=== PATIENT | female | born 1945 | race Caucasian/White ===

== ENCOUNTER 2020-06-24 20:15 | Emergency (ER) | payer OTHER ==
--- NOTE | 2020-06-24 21:26 | RAD REPORT ---
EXAM DESCRIPTION: CT - Head Brain Wo Cont - 06/24/2020 9:10 pm CLINICAL HISTORY: DIZZINESShypertension COMPARISON: HEAD BRAIN W O CONTRAST dated 08/27/2013 TECHNIQUE: Axial 5 mm thick images of the head were obtained without IV contrast. All CT scans are performed using dose optimization technique as appropriate and may include automated exposure control or mA/KV adjustment according to patient size. FINDINGS: No intracranial hemorrhage, mass, edema or shift of mid-line structures. No acute infarcti on changes seen. No abnormal extra-axial fluid collections. No cortical edema or sulcal effacement. A trophy and chronic ischemic changes are present, relatively mild, and similar to 2014 study. Mastoid air cells are clear. No acute paranasal sinus finding. No acute bony findings. IMPRESSION: Negative non-contrast CT head examination for acute finding. Atrophy and chronic ischemic changes match comparison.
[2020-06-24 21:31] LABS: Absolute Lymphocytes (CBC) 1.6 K/uL (0.7-4.9); Basophils % 0.7 % (0-1.3); Lymphocytes % 12.8 % (15.3-44.8); MPV 9.9 fL (7.6-11.3); RBC Red Blood Cell Count 4.51 M/uL (3.86-4.86)
[2020-06-24 21:35] LABS: Protime INR 0.97
[2020-06-24 21:52] LABS: ALT/SGPT 18 U/L (12-78); AST/SGOT 11 U/L (15-37); Albumin 3.3 g/dL (3.4-5.0); Alkaline Phosphatase 94 U/L (45-117); BUN Blood Urea Nitrogen 19 mg/dL (7-18); Bicarbonate 27 mmol/L (21-32); Bilirubin Direct 0.2 mg/dL (0-0.2); Bilirubin Total 0.2 mg/dL (0.2-1.0); Glucose Level 128 mg/dL (74-106); Lipase 165 U/L (73-393); Magnesium 1.9 mg/dL (1.8-2.4); NT PRO-BNP 113 pg/mL (<125); Protein, Total 7.3 g/dL (6.4-8.2); Sodium Level 144 mmol/L (136-145); Troponin (Emerg Dept Use Only) < 0.02 ng/mL (0.0-0.045)
[2020-06-25] MEDS ORDERED: METRONIDAZOLE 500mg IVPB 500 MG/100 ML BAG IV ONE (00:07)
[2020-06-25] MEDS ORDERED: CIPROFLOXACIN HCL 500 MG TAB ONE (00:07)
--- NOTE | 2020-06-25 00:10 | EDPHYS ---
Physician Documentation [facility] Name: Shantal Dubois Age: 74 yrs Sex: Female : 1945 Arrival Date: 06/24/2020 Time: 20:18 Bed 14 Private MD: ED Physician Apolinar Brian HPI: 06/24 21:06 This 74 yrs old Female presents to ER via Wheelchair with complaints of High pm1 Blood Pressure, Dizziness. 21:06 The patient has elevated blood pressure and discovered this at home, with a home pm1 device. Onset: The symptoms/episode began/occurred today. Modifying factors: The symptoms are aggravated by nothing, The symptoms are alleviated by nothing. Associated signs and symptoms: Pertinent positives: dizziness, Pertinent negatives: chest pain, weakness, shortness of breath. Severity of symptoms: in the emergency department the blood pressure is unchanged. The patient has not experienced similar symptoms in the past. Patient has also noticed RLQ abdominal pain for the past 2 days that was worse yesterday. Historical: - Allergies: 20:25 No Known Allergies; jd3 - Home Meds: 20:25 Lisinopril Oral [Active]; Aspirin Oral [Active]; cholesterol med [Active]; jd3 - PMHx: 20:25 Hypertension; High Cholesterol; jd3 - PSHx: 20:25 None; jd3 - Immunization history:: Adult Immunizations up to date. - Social history:: Smoking status: Patient denies any tobacco usage or history of. ROS: 21:06 Constitutional: Negative for fever, chills, and weight loss, Eyes: Negative for injury, pm1 pain, redness, and discharge, ENT: Negative for injury, pain, and discharge, Neck: Negative for injury, pain, and swelling, Cardiovascular: Negative for chest pain, palpitations, and edema, Respiratory: Negative for shortness of breath, cough, wheezing, and pleuritic chest pain. 21:06 Back: Negative for injury and pain, : Negative for injury, bleeding, discharge, and swelling, MS/Extremity: Negative for injury and deformity, Skin: Negative for injury, rash, and discoloration. 21:06 Abdomen/GI: Positive for abdominal pain, of the right lower quadrant, Negative for nausea, vomiting, and diarrhea. 21:06 Neuro: Positive for dizziness, Negative for numbness, tingling, weakness. Exam: 21:06 Constitutional: This is a well developed, well nourished patient who is awake, alert, pm1 and in no acute distress. Head/Face: Normocephalic, atraumatic. Chest/axilla: Normal chest wall appearance and motion. Nontender with no deformity. No lesions are appreciated. Cardiovascular: Regular rate and rhythm with a normal S1 and S2. No gallops, murmurs, or rubs. Normal PMI, no JVD. No pulse deficits. Respiratory: Lungs have equal breath sounds bilaterally, clear to auscultation and percussion. No rales, rhonchi or wheezes noted. No increased work of breathing, no retractions or nasal flaring. 21:06 Back: No spinal tenderness. No costovertebral tenderness. Full range of motion. Skin: Warm, dry with normal turgor. Normal color with no rashes, no lesions, and no evidence of cellulitis. MS/ Extremity: Pulses equal, no cyanosis. Neurovascular intact. Full, normal range of motion. 21:06 Abdomen/GI: Inspection: abdomen appears normal, Palpation: soft, in all quadrants, mild abdominal tenderness, in the right lower quadrant, rebound tenderness, is not appreciated. 21:06 Neuro: Exam negative for acute changes, Orientation: is normal, Mentation: is normal, Motor: is normal, Sensation: is normal, no obvious gross deficits. Vital Signs: 20:23 BP 147 / 60; Pulse 89; Resp 17 S; Temp 97.9(TE); Pulse Ox 100% on R/A; Weight 79.83 kg j (R); Height 5 ft. 2 in. (157.48 cm) (R); Pain /10; 21:29 BP 130 / 66; Pulse 106; Resp 17 S; Pulse Ox 100% on R/A; ca1 22:38 BP 127 / 63; Pulse 87; Resp 18; Pulse Ox 97% ; mg2 06/25 00:08 BP 132 / 71; Pulse 85; Resp 18; Pulse Ox 100% on R/A; mg2 06/24 20:23 Body Mass Index 32.19 (79.83 kg, 157.48 cm) jd3 MDM: 06/24 20:36 Patient medically screened. pm1 23:46 Data reviewed: vital signs. Data interpreted: Pulse oximetry: on room air is 97 %. pm1 Interpretation: normal. Counseling: I had a detailed discussion with the patient and/or guardian regarding: the historical points, exam findings, and any diagnostic results supporting the discharge/admit diagnosis, lab results, radiology results, the need for further work-up and treatment in the hospital. 23:46 Refusal of service: The patient/guardian displays adequate decision making capability pm1 and despite a detailed discussion of alternatives, benefits, risks, and consequences refuses: Admission to the hospital for further work-up and treatment. 06/25 00:26 ED course: Discussed with patient and son at length on multiple occasions the need for pm1 admission. Patient does not want to stay in the hospital due to her concern and fear about covid-19. Explained to patient that she can return at any time for admission to the hospital. 06/24 20:50 Order name: Basic Metabolic Panel; Complete Time: 21:56 pm1 06/24 20:50 Order name: CBC with Diff; Complete Time: 21:56 pm1 06/24 20:50 Order name: LFT's; Complete Time: 21:56 pm1 06/24 20:50 Order name: Magnesium; Complete Time: 21:56 pm1 06/24 20:50 Order name: NT PRO-BNP; Complete Time: 21:56 pm1 06/24 20:50 Order name: PT-INR; Complete Time: 21:56 pm1 06/24 20:50 Order name: CT Head Brain wo Cont; Complete Time: 21:27 pm1 06/24 20:50 Order name: Troponin (emerg Dept Use Only); Complete Time: 21:56 pm1 06/24 20:50 Order name: XRAY Chest (1 view) pm1 06/24 20:50 Order name: EKG; Complete Time: 20:51 pm1 06/24 20:50 Order name: Lipase; Complete Time: 21:56 pm1 06/24 20:59 Order name: CT Abd/Pelvis - IV Contrast Only pm1 06/24 20:50 Order name: Cardiac monitoring; Complete Time: 21:04 pm1 06/24 20:50 Order name: EKG - Nurse/Tech; Complete Time: 21:29 pm1 06/24 20:50 Order name: IV Saline Lock; Complete Time: 21:28 pm1 06/24 20:50 Order name: Labs collected and sent; Complete Time: 21: pm1 06/24 20:50 Order name: O2 Per Protocol; Complete Time: : pm06/24 20:50 Order name: O2 Sat Monitoring; Complete Time: 21: pm1 Administered Medications: 00:00 Drug: Flagyl 500 mg Volume: 100 ml; Route: IVPB; Rate: 200 ml/hr; Infused Over: 30 mg2 mins; Site: right antecubital; 00:01 Drug: Cipro 500 mg Route: PO; mg2 Disposition: 07:24 Co-signature as Attending Physician, Apolinar Brian MD. mh7 Disposition: 06/25/20 00:08 Patient has left against medical advice. Impression: Diverticulitis of large intestine without perforation or abscess without bleeding. - Patients states they are going to Home. - Condition is Stable. - Discharge Instructions: Clear Liquid Diet, Adult, Diverticulitis. - Prescriptions for Flagyl 500 mg Oral Tablet - take 1 tablet by ORAL route every 6 hours for 10 days; 40 tablet. Cipro 500 mg Oral Tablet - take 1 tablet by ORAL route every 12 hours for 10 days; 20 tablet. Tramadol 50 mg Oral Tablet - take 1 tablet by ORAL route every 8 hours as needed; 12 tablet. Follow up: Emergency Department; When: As needed; Reason: Worsening of condition. Follow up: Private Physician; When: Upon discharge from the Emergency Department; Reason: Recheck today's complaints, Continuance of care, Re-evaluation by your physician. - Problem is new. - Symptoms have improved. Signatures: Dispatcher [employer] EDMN Az De La Cruz, KATERINA FOURDRINIER TENDER pm1 Richardson Laamr RN RN jd3 Billy Zendejas RN RN mg2 Apolinar Brian MD MD mh7 Corrections: (The following items were deleted from the chart) 00:40 00:08 06/25/2020 00:08 Patients has left against medical advice. Impression: mg2 Diverticulitis of large intestine without perforation or abscess without bleeding. Patient states they are going to Home. Condition is Stable. Follow up: Emergency Department; When: As needed; Reason: Worsening of condition. Follow up: Private Physician; When: Upon discharge from the Emergency Department; Reason: Recheck today's complaints, Continuance of care, Re-evaluation by your physician. Problem is new. Symptoms have improved. pm1
--- NOTE | 2020-06-25 00:10 | ER ---
Nurse's Notes [facility] Name: Shantal Dubois Age: 74 yrs Sex: Female : 1945 Arrival Date: 06/24/2020 Time: 20:18 Bed 14 Private MD: Diagnosis: Diverticulitis of large intestine without perforation or abscess without bleeding Presentation: 06/24 20:23 Chief complaint: Patient states: "I am having some high blood pressure today and some jd3 dizziness.". Coronavirus screen: At this time, the client does not indicate any symptoms associated with coronavirus-19. Ebola Screen: Patient negative for fever greater than or equal to 101.5 degrees Fahrenheit, and additional compatible Ebola Virus Disease symptoms. Initial Sepsis Screen: Does the patient meet any 2 criteria? No. Patient's initial sepsis screen is negative. Does the patient have a suspected source of infection? No. Patient's initial sepsis screen is negative. Risk Assessment: Do you want to hurt yourself or someone else? Patient reports no desire to harm self or others. Onset of symptoms was June 24, 2020. 20:23 Method Of Arrival: Wheelchair jd3 20:23 Acuity: JOS 3 jd3 Historical: - Allergies: 20:25 No Known Allergies; jd3 - Home Meds: 20:25 Lisinopril Oral [Active]; Aspirin Oral [Active]; cholesterol med [Active]; jd3 - PMHx: 20:25 Hypertension; High Cholesterol; jd3 - PSHx: 20:25 None; jd3 - Immunization history:: Adult Immunizations up to date. - Social history:: Smoking status: Patient denies any tobacco usage or history of. Screenin:30 Abuse screen: Denies threats or abuse. Denies injuries from another. Nutritional ca1 screening: No deficits noted. Tuberculosis screening: No symptoms or risk factors identified. Fall Risk IV access (20 points). Assessment: 20:30 General: Appears in no apparent distress. comfortable, Behavior is calm, cooperative, ca1 appropriate for age. Pain: Complains of pain in right lower quadrant Pain currently is 5 out of 10 on a pain scale. Pain began 1 day ago. Neuro: Level of Consciousness is awake, alert, obeys commands, Oriented to person, place, time, situation, Heel Sander are equal bilaterally Moves all extremities. Speech is normal, Facial symmetry appears normal, Pupils are PERRLA, Intact Reports dizziness. Cardiovascular: Heart tones S1 S2 present Capillary refill < 3 seconds Patient's skin is warm and dry. Cardiovascular: Rhythm is sinus tachycardia. Respiratory: Airway is patent Respiratory effort is even, unlabored, Respiratory pattern is regular, symmetrical, Breath sounds are clear bilaterally. GI: Abdomen is flat, non-distended, Bowel sounds present X 4 quads. Abd is soft and non tender X 4 quads. : No signs and/or symptoms were reported regarding the genitourinary system. EENT: No signs and/or symptoms were reported regarding the EENT system. Derm: Skin is intact, is healthy with good turgor, Skin is pink, warm \\T\\ dry. Musculoskeletal: Circulation, motion, and sensation intact. Capillary refill < 3 seconds. 21:29 Reassessment: Patient appears in no apparent distress at this time. Patient and/or ca1 family updated on plan of care and expected duration. Pain level reassessed. Patient is alert, oriented x 3, equal unlabored respirations, skin warm/dry/pink. 06/25 00:08 Reassessment: Patient appears in no apparent distress at this time. Patient and/or mg2 family updated on plan of care and expected duration. Pain level reassessed. Patient is alert, oriented x 3, equal unlabored respirations, skin warm/dry/pink. 00:39 Reassessment: ama form signed by the patient. she refused to be admitted because she is mg2 scared of covid. Vital Signs: 06/24 20:23 BP 147 / 60; Pulse 89; Resp 17 S; Temp 97.9(TE); Pulse Ox 100% on R/A; Weight 79.83 kg j (R); Height 5 ft. 2 in. (157.48 cm) (R); Pain 09/02; 21:29 BP 130 / 66; Pulse 106; Resp 17 S; Pulse Ox 100% on R/A; ca1 22:38 BP 127 / 63; Pulse 87; Resp 18; Pulse Ox 97% ; mg2 06/25 00:08 BP 132 / 71; Pulse 85; Resp 18; Pulse Ox 100% on R/A; mg2 06/24 20:23 Body Mass Index 32.19 (79.83 kg, 157.48 cm) [facility] ED Course: 06/24 20:18 Patient arrived in ED. cf2 20:24 Triage completed. jd3 20:26 Arm band placed on. jd3 20:30 Patient has correct armband on for positive identification. Placed in gown. Bed in low ca1 position. Call light in reach. Side rails up X2. panel monitor on. Pulse ox on. NIBP on. Warm blanket given. 20:34 Madalyn Merlos RN is Primary Nurse. ca1 20:36 Az De La Cruz NP is PHCP. pm1 20:36 Apolinar Brian MD is Attending Physician. pm1 21:07 XRAY Chest (1 view) In Process Unspecified. EDMS 21:10 CT Head Brain wo Cont In Process Unspecified. EDMS 21:23 No provider procedures requiring assistance completed. Inserted saline lock: 20 gauge ca1 in right antecubital area, using aseptic technique. Blood collected. 22:41 CT Abd/Pelvis - IV Contrast Only In Process Unspecified. EDMS 11 00:40 IV discontinued, intact, bleeding controlled, No redness/swelling at site. Pressure mg2 dressing applied. Administered Medications: 00:00 Drug: Flagyl 500 mg Volume: 100 ml; Route: IVPB; Rate: 200 ml/hr; Infused Over: 30 mg2 mins; Site: right antecubital; 00:01 Drug: Cipro 500 mg Route: PO; mg2 Intake: 06/24 19:30 IV: 1000ml; Total: 1000ml. mg2 Outcome: 06/25 00:40 AMA AMA form signed mg2 Condition: stable Instructed on medication usage, Demonstrated understanding of instructions, follow-up care, medications, Prescriptions given X 3. 00:40 Patient left the ED. mg2 Signatures: Dispatcher [employer] EDMS Az De La Cruz NP STEAMING MACHINE OPERATOR pm1 Richardson Lamar RN RN jd3 Billy Zendejas RN RN mg2 Madalyn Merlos RN RN ca1 Radha Simeon cf2 Corrections: (The following items were deleted from the chart) 06/24 20:26 20:23 Temp 97.9F; jd3 jd3 21:29 20:30 Cardiovascular: Rhythm is sinus rhythm ca1 ca1 22:41 22:38 Pulse 87bpm; Resp 18bpm; Pulse Ox 97%; mg2 mg2
[2020-06-25 01:07] VITALS: TEMP 97.9
[2020-06-25 01:14] VITALS: BP 132/71; O2SAT 100
--- NOTE | 2020-06-25 08:45 | RAD REPORT ---
EXAM DESCRIPTION: RAD - Chest Single View - 06/24/2020 9:07 pm CLINICAL HISTORY: Dizziness Chest pain. COMPARISON: CHEST PA AND LAT 2 VIEW dated 08/28/2013; CHEST SINGLE VIEW dated 08/27/2013; CHEST SINGLE V IEW dated 06/22/2012 FINDINGS: Portable technique limits examination quality. The lungs are grossly clear. The heart is normal in size. No displaced fractures.Mild degenerate gaytan ges are present in both shoulders. IMPRESSION: No acute intrathoracic process suspected.
--- NOTE | 2020-06-25 10:08 | RAD REPORT ---
EXAM DESCRIPTION: Abdomen Pelvis W Contrast CLINICAL HISTORY: 74 years Female ABD PAIN COMPARISON: None. TECHNIQUE: Contiguous axial images obtained through the abdomen and pelvis following IV contrast. Re formatted images obtained. This exam was performed according to our department optimization program which includes automated exp osure control, adjustment of the mA and/or kv according to patient size and/or use of iterative recon struction technique. FINDINGS: There is mild scarring/atelectasis at the left lung base. There is elevation of the right hemidiaphragm. There is a moderate hiatal hernia. There are low density lesions in the liver some of which are too small to characterize. The lesions l ikely represent cysts. The spleen and pancreas appear unremarkable. The left adrenal gland is slightly enlarged. There are small renal cysts. There is a small nonobstructing calculus in the lower left kidney. No hy dronephrosis or ureteral calculi. The gallbladder is visualized. Atherosclerotic calcifications. No aneurysmal dilatation of the aorta. No bowel obstruction. The appendix appears unremarkable. There is colonic diverticulosis. The re is wall thickening and inflammatory change proximal transverse colon consistent with changes from diverticulitis. No significant free pelvic fluid. There is a small calcified fibroid in the uterus. The endomet rial stripe appears thickened to approximately 1.5 cm. There is a small fat-containing right inguinal hernia and a small fat-containing umbilical hernia. Degenerative changes in the spine. There are severe degenerative changes in the bilateral hips. IMPRESSION: There is diverticulitis involving the proximal transverse colon. The endometrial stripe is thickened to approximately 1.5 cm. Pelvic sonography should be obtained to better evaluate. Other findings as above. Electronically signed by: Victorino Salazar MD 06/24/2020 11:02 PM PREPARED FOODS SUPERVISOR Due to temporary technical issues with the PACS/Fluency reporting system, reports are being signed by the in house radiologist without review as a courtesy to ensure prompt reporting. The interpreting r adiologist is fully responsible for the content of the report.
== END 2020-06-25 00:40 | disposition left against medical advice (07) ==
LOC: ER 20:15
DX: K57.32 Diverticulitis of large intestine without perforation or abscess without bleeding (principal); R42 Dizziness and giddiness; I10 Essential (primary) hypertension; E78.00 Pure hypercholesterolemia, unspecified; Z79.82 Long term (current) use of aspirin
CPT/HCPCS: 93005; 85025; 80048; 36415; 83735; 85610; 80076; 84484; 83690; 83880; 70450; 74177; 71045; 96374; 99284; Q9967

== ENCOUNTER 2020-07-24 08:38 | Day surgery (SDC) | payer OTHER ==
--- OUTSIDE RECORDS SUMMARY | 2020-07-24 08:45 | XMS REPORT ---
:1945 Author Organization [employer] Care Team Providers Name Role Phone Vergara, Na Provider Role Unavailable Allergies, Adverse Reactions, Alerts Substance Reaction Event Type MSG Info Not Available Drug Allergy Problems Problem Type Condition Code Onset Dates Condition Statu s Problem Chronic back pain M54.9 Active Problem Benign essential HTN I10 Active Problem Sciatica M54.30 Active Problem Asymptomatic microscopic hematuria R31.21 Active Problem Elevated blood pressure reading I10 Active with diagnosis of hypertension Problem Thyroid nodule E04.1 Active Problem Lumbar degenerative disc disease M51.36 Active Problem Hyperlipidemia E78.5 Active Problem Screening mammogram, encounter for Z12.31 Active Problem Screening for osteoporosis Z13.820 A ctive Assessment Medicare annual wellness visit, Z00.00 Active subsequent Problem Spinal stenosis, lumbosacral region M48.07 Active Problem DDD (degenerative disc disease), M51.37 Active lumbosacral Problem Renal cyst N28.1 Active Problem Allergic rhinitis, seasonal J30.2 Active Problem Primary osteoarthritis of right hip M16.11 Active Problem Nontoxic 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
--- OUTSIDE RECORDS SUMMARY | 2020-07-24 08:46 | XMS REPORT | Continuity of Care Document ---
:1945 Author Organization [facility] t Address [address] [place] [address] Care Team Providers Name Role Phone Unavailable Unavailable Unavailable Problems This patient has no known problems. Allergies, Adverse Reactions, Alerts Allergy Allergy Status Severity Reaction(s) Onset Inactive Treating Comm ents Source Name Type Date Date Clinician MSG Adverse Active Info Not [facility] Reaction Available [facility] Clinics Medications Ordered Filled Start Stop Current Ordering Indication Dosage Frequency Signature Comments Components Source Medication Medication Date Date Medication? Clinician (SIG) Name Name Pravastatin Pravastatin Yes Na Vergara TAKE [address] [facility] Sodium Sodium TABLET [facility] Aspirin 81 Aspirin 81 Yes Na Vergara [address] [facility] Lisinopril Lisinopril Yes Na Vergara [address] [facility] Immunizations Ordered Filled Immunization Date Status Comments Sourc e Immunization Name Name FluAD FluAD 2019-05-[address] [facility] Procedures This patient has no known procedures. Encounters Start End Encounter Admission Attending Care Care Encounter Source Date/Time Date/Time Type Type Clinicians Facility Department ID 2020-07-11 2020-07-11 Outpatient [facility] [id number] [facility] 2020-07-10 2020-07-10 Outpatient [facility] [id number] [facility] 2020-06-24 2020-06-24 Out[facility] [id number] [facility] Outpat[facility] Clinics 2020-05-11 2020-05-11 [facility] [id number] [facility] 13[facility] [employer] [facility] l Medicine Outpati ent Clinics 2020-02-22 2020-02-22 [facility] [id number] 08:40:00 08:40:00 [facility] [employer] [facility] Medicine [facility] Medicine Outpati ent Clinics 2020-02-20 2020-02-20 [facility] [id number] 16:45:00 16:45:00 [facility] [employer] [facility] Medicine l Medicine Outpati ent Clinics 2020-02-20 2020-02-20 [facility] [id number] 15[facility]34:00 15:34:00 [facility] [employer] [facility] - [facility] Medicine l Medicine Outpati ent Clinics 2020-02-20 2020-02-20 [facility] [id number] 13[facility]35:00 13:35:00 [facility] [employer] - [facility] Medicine l Medicine Outpati ent Clinics 2020-02-15 2020-02-15 [facility] [id number] [facility] 09:26:00 09:26:00 t [facility] [employer] Medicine l Medicine Outpati ent Clinics 2019-05-25 2019-05-25 [facility] [id number] [facility] 05:40:00 05:40:00 [facility] [employer] [facility] Medicine Outpati ent Clinics 2019-05-23 2019-05-23 [facility] [id number] [facility] 13:40:00 13:40:00 [facility] [employer] - [facility] Medicine [facility] Medicine Outpati ent Clinics 2019-04-21 2019-04-21 [facility] [id number] [facility] 13[facility]00:00 13:00:00 [facility] [employer] - [facility] Medicine Outpati ent Clinics 2019-04-07 2019-04-07 [facility] [id number] [facility] 16:20:00 16:20:00 t [employer] [facility] Medicine Outpat[facility] ent Clinics 2018-10-18 2018-10-18 [facility] [id number] 08[facility]50:00 08:50:00 t [employer] [facility] Clinics 2018-10-07 2018-10-07 [facility] [id number] [facility] 14:00:00 14:00:00 t [employer] [facility] Out[facility] Clinics 2018-06-30 2018-06-30 [facility] [id number] [facility] 14:30:00 14:30:00 t [employer] [facility] Out[facility] ent Clinics 2018-04-07 2018-04-07 [facility] [id number] [facility] 14:00:00 14:00:00 t [employer] [facility] Out[facility] Clinics Results This patient has no known results.
[2020-07-24] MEDS ORDERED: Ringers Lactate 1,000 ML IV ONE (09:18)
[2020-07-24] MEDS ORDERED: propofoL 200 MG/20 ML VIAL IV ONE (09:34)
[2020-07-24] MEDS ORDERED: MIDAZOLAM HCL 2 MG/2 ML INJ ONE (09:34)
[2020-07-24] MEDS ORDERED: LIDOCAINE 2% MPF 5 ML VIAL ONE (09:34)
[2020-07-24] MEDS ORDERED: LIDOCAINE 1% W/EPI 1:100,000 MDV 20 ML VIAL ONE (11:06)
[2020-07-24] MEDS ORDERED: NA CHLORIDE 0.9% 1,000 ML ONE (11:06)
[2020-07-24] MEDS ORDERED: KETOROLAC 30 MG/ML INJ ONE (11:45)
[2020-07-24] MEDS ORDERED: ACETAMINOPHEN 500 MG TAB ONE (12:15)
--- NOTE | 2020-07-24 12:41 | OP ---
Date of Procedure: 07/24/2020 Surgeon: Jailyn Asencio MD Preoperative Diagnosis: Endometrial thickening. Postoperative Diagnosis: Endometrial thickening and endometrial polyps. Procedure Performed: Hysteroscopy, endometrial polypectomy, and dilatation and curettage. Anesthesia: MAC plus paracervical block. Specimens: Endometrial polyps and curettings. Complications: No complications. Drains: No drains. Condition: Stable. Findings: Endometrial polyps x2 were found. They were large, 1 large irregular one, another smooth polyp which was in the posterior wall. There was an impression of myoma in the anterior wall and the endometrium mostly appeared to be atrophic and cystic. After removal of both polyps, entirely the cavity was visualized and unremarkable. Scant curettings were obtained. Indication: The patient is a 74-year-old female. The patient was referred to the office for inciden balwinder finding on CT scan as she was imaged for diverticulitis that there was thickened endometrium and so she was evaluated with a transvaginal ultrasound. There was significantly thickened endometrial l ining. There was no history of any postmenopausal bleeding. Despite this given the thickening, pres ented her with options of endometrial sampling, most likely optimal would be to perform a hysteroscop y, direct visualization of the uterine cavity and then sample. After understanding the benefits and risks of the procedure, patient was then brought to the OR. Description Of Procedure: After informed consent was verified, she was taken back to OR. Her son wa s present by her bedside, explained the procedure again and understood the recovery process. After she was taken back to OR, she was placed in a supine fashion on the operating table. 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 So, she was positioned while she was awake in decently comfortable position in Catalino stirru. Then, she was given anesthesia. The vulva and vagina were prepped and draped in a sterile fashion. A speculum was placed to expose the cervix and injected with 1% lidocai ne mixed with 1:100,000 epinephrine, 5 cc was given here and at 4 and 8 o'clock positions of the cerv icovaginal junction. Paracervical block was given with another 6 cc. The diagnostic SlimLine hysteroscope was used to enter the cervical canal. Normal saline for distent ion and 30 degree lens. Under direct visualization, the uterine cavity was entered. The polyps were seen readily the base of the polyps at the posterior wall at the very distal part of the endometrial canal. The second polyp was on the right lateral aspect, still arising from the distal part of the endometrial canal, but from the sidewall. The entire cavity was well visualized. The tip of the sco pe was used to tease the base of the larger polyp. Once this was done, it appeared to be mostly free . The scope was removed and endometrial polyp forceps and Mervin forceps were used to retrieve the p olyps. After entirely retrieving them, the scope was replaced to check for completion and the polyps were completely removed. Then, endometrial sampling was performed with #0 endometrial curette. The sampling was scant, which was consistent with the findings of any atrophic endometrium. Procedure w as completed after removing all the instruments. Instrument, needle, and sponge counts were correct at the end of the case. Specimen was sent for permanent pathology and labeled appropriately. The serafin caal was recovered fully from anesthesia and taken to Day Surgery without any problems. EBL was min imal. She has a 1 week follow up with me in the office. TAMI/MANDY Voice ID: [id number] Report ID: [id number]
[2020-07-24 13:13] VITALS: TEMP 97.3
[2020-07-24 13:15] VITALS: BP 146/59; O2SAT 98
== END 2020-07-24 13:07 | disposition home or self-care (01) ==
LOC: PRE 08:38
PROVIDERS: ATTEND Obstetrics & Gynecology
PROC: 0UDB7ZZ Extraction of Endometrium, Via Natural or Artificial Opening (ICD-10-PCS; 2020-07-24)
PROC: 0UB98ZZ Excision of Uterus, Via Natural or Artificial Opening Endoscopic (ICD-10-PCS; principal; 2020-07-24 10:30)
DX: N84.0 Polyp of corpus uteri (principal); R93.89 Abnormal findings on diagnostic imaging of other specified body structures; N95.2 Postmenopausal atrophic vaginitis; I10 Essential (primary) hypertension; E78.00 Pure hypercholesterolemia, unspecified; M16.11 Unilateral primary osteoarthritis, right hip; Z20.828 Contact with and (suspected) exposure to other viral communicable diseases; E78.5 Hyperlipidemia, unspecified; Z79.82 Long term (current) use of aspirin
CPT/HCPCS: 88305; 58558; U0002; J2704; J2250; J7120; J7030

== ENCOUNTER 2022-08-22 09:46 | Emergency (ER) | payer OTHER ==
--- OUTSIDE RECORDS SUMMARY | 2022-08-22 09:51 | XMS REPORT | Continuity of Care Document ---
:1945 Author Organization [facility] t Address [address] [place] [address] Care Team Providers Name Role Phone VergaraRachelle Attending Clinician Unavailable Payers Payer Name Policy Type Policy Number Effective Date Expiration Date S jyotsna [employer] [id number] [facility] INS[facility] - [facility] MEDICARE [id number] 2012 [facility] NOVITAS 00:00:00 - [facility] [employer] C1 [id number] [facility] INSURANCE - [facility] MEDICARE [id number] 2012 [facility] NOVITAS 00:00:00 - [facility] [employer] C1 [id number] [facility] INSURANCE - [facility] MEDICARE [id number] 2012 [facility] NOVITAS 00:00:00 [facility] MEDICARE [id number] 2012 [facility] NOVITAS 00:00:00 [facility] [employer] C1 [id number] [facility] INSURANCE [facility] MEDICARE [id number] 2012 [facility] NOVITAS 00:00:00 [facility] [employer]1 [id number] [facility] INSURANCE [facility] Problems Condition Condition Condition Status Onset Resolution Last Treating Co mments Source Name Details Category Date Date Treatment Clinician Date [id number] 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 [facility] [id number] Memory Problem Common deficit [facility] Renal cyst Renal cyst Problem C ommon [facility] Spinal Spinal Problem Common stenosis stenosis, Spiri t of lumbar lumbosacra - C HI region l region [facility] [id number] Primary Problem Commo n osteoarthr Spirit itis of - [facility] right hip [facility] Seasonal Allergic Problem Commo n allergic rhinitis, Spiri t rhinitis seasonal - [facility] Degenerati DDD Problem Commo n on of (degenerat Spirit lumbosacra yazmin disc - CH I l disease), interverte lumbosacra She s [facility] Sciatica Sciatica Problem Commo n [facility] Essential Benign Problem Common hypertensi essential Spi rit on HTN [facility] Hyperlipid Hyperlipid Problem C [facility] Microscopi Asymptomat Problem [facility] Spirit hematuria microscopi - C HI c [facility] Chronic Chronic Problem Common back pain back pain Spir it [facility] [id number] Thyroid Problem Commo n nodule [facility] 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 ar goiter - CH I [facility] Degenerati Lumbar Problem Commo n on of degenerati Spirit lumbar ve disc - [facility] interverte disease [facility] [id number] Screening Problem Com mon for Spirit osteoporos - [facility] is [facility] [id number] Screening Problem Com mon mammogram, [facility] encounter - [facility] for [facility] [id number] Elevated Problem Commo n blood [facility] pressure - [facility] reading [facility] [place] hypertensi on [id number] Irregular Problem Com mon heart [facility] beats [facility] Allergies, Adverse Reactions, Alerts This patient has no known allergies or adverse reactions. Social History Social Habit Start Date Stop Date Quantity Comments Source History of Tobacco Use Co mmon [facility] Sex Assigned At Com mon Spirit - [facility] Smoking Status Start Date Stop Date Source Never Smoker [facility] Medications Ordered Filled Start Stop Current Ordering Indication Dosage Frequency Signature Comments Components Source Medication Medication Date Date Medication? Clinician (SIG) Name Name amLODIPine amLODIPine No 1{table amLODIPine Besylate 5 Besylate 5 6-16 t} Besylate 5 MG MG 00:00: MG 00 amLODIPine amLODIPine No 1{table amLODIPine Besylate 5 Besylate 5 6-16 t} Besylate 5 MG MG 00:00: MG 00 Lisinopril Lisinopril No Lisinopril 30 MG 30 MG 30 MG Aspirin 81 Aspirin 81 No 1{table QD Aspirin 81 81 MG 81 MG t} 81 MG Pravastatin Pravastatin No 1{table QD Pravastati Sodium 40 Sodium 40 t} n Sodium MG MG 40 MG Lisinopril Lisinopril No 1{table QD Lisinopril 30 MG 30 MG t} 30 MG Lisinopril Lisinopril No Lisinopril Common 30 MG 30 MG 30 MG [facility] Pravastatin Pravastatin No 1{table QD Pravastati Common Sodium 40 Sodium 40 t} n Sodium S pirit MG MG 40 MG [facility] Aspirin 81 Aspirin 81 No 1{table QD Aspirin 81 Common 81 MG 81 MG t} 81 MG [facility] amLODIPine amLODIPine No 1{table amLODIPine Common Besylate 5 Besylate 5 t} Besylate 5 Spirit MG MG [facility] Lisinopril Lisinopril No 1{table QD Lisinopril Common 30 MG 30 MG t} 30 MG [facility] Lisinopril Lisinopril No Lisinopril 30 MG 30 MG 30 MG Lisinopril Lisinopril No 1{table QD Lisinopril 30 MG 30 MG t} 30 MG Pravastatin Pravastatin No Pravastati Sodium 40 Sodium 40 n Sodium MG MG 40 MG amLODIPine amLODIPine No 1{table amLODIPine Besylate 5 Besylate 5 t} Besylate 5 MG MG MG Aspirin 81 Aspirin 81 No 1{table QD Aspirin 81 81 MG 81 MG t} 81 MG Lisinopril Lisinopril No Lisinopril 30 MG 30 MG 30 MG Lisinopril Lisinopril No 1{table QD Lisinopril 30 MG 30 MG t} 30 MG Pravastatin Pravastatin No Pravastati Sodium 40 Sodium 40 n Sodium MG MG 40 MG amLODIPine amLODIPine No 1{table amLODIPine Besylate 5 Besylate 5 t} Besylate 5 MG MG MG Aspirin 81 Aspirin 81 No 1{table QD Aspirin 81 81 MG 81 MG t} 81 MG amLODIPine amLODIPine No 1{table amLODIPine Besylate 5 Besylate 5 t} Besylate 5 MG MG MG Aspirin 81 Aspirin 81 No 1{table QD Aspirin 81 81 MG 81 MG t} 81 MG Pravastatin Pravastatin No 1{table QD Pravastati Sodium 40 Sodium 40 t} n Sodium MG MG 40 MG Pravastatin Pravastatin Yes Na Vergara TAKE 1 Common Sodium Sodium TABLET [facility] Aspirin 81 Aspirin 81 Yes Na Vergara 1 tablet [facility] Lisinopril Lisinopril Yes Na Vergara 1 tablet [facility] Lisinopril Lisinopril No Lisinopril 30 MG 30 MG 30 MG Lisinopril Lisinopril No 1{table QD Lisinopril 30 MG 30 MG t} 30 MG amLODIPine amLODIPine No 1{table amLODIPine Besylate 5 Besylate 5 t} Besylate 5 MG MG MG Aspirin 81 Aspirin 81 No 1{table QD Aspirin 81 81 MG 81 MG t} 81 MG Lisinopril Lisinopril No QD Lisinopril 30 MG 30 MG 30 MG Pravastatin Pravastatin No 1{table QD Pravastati Sodium 40 Sodium 40 t} n Sodium MG MG 40 MG Lisinopril Lisinopril No 1{table QD Lisinopril 30 MG 30 MG t} 30 MG Lisinopril Lisinopril No 1{table QD Lisinopril 30 MG 30 MG t} 30 MG Aspirin 81 Aspirin 81 No 1{table QD Aspirin 81 81 MG 81 MG t} 81 MG Lisinopril Lisinopril No QD Lisinopril 30 MG 30 MG 30 MG Pravastatin Pravastatin No 1{table QD Pravastati Sodium 40 Sodium 40 t} n Sodium MG MG 40 MG Pravastatin Pravastatin No QD Pravastati Sodium 40 Sodium 40 n Sodium MG MG 40 MG Lisinopril Lisinopril No 1{table QD Lisinopril 30 MG 30 MG t} 30 MG Aspirin 81 Aspirin 81 No 1{table QD Aspirin 81 81 MG 81 MG t} 81 MG Lisinopril Lisinopril No Lisinopril 30 MG 30 MG 30 MG Aspirin 81 Aspirin 81 No 1{table QD Aspirin 81 81 MG 81 MG t} 81 MG Pravastatin Pravastatin No 1{table QD Pravastati Sodium 40 Sodium 40 t} n Sodium MG MG 40 MG Lisinopril Lisinopril No 1{table QD Lisinopril 30 MG 30 MG t} 30 MG Immunizations Ordered Immunization Filled Immunization Date Status Commen ts Source Name Name FluAD FluAD 2019-05-23 Completed [facility]:01:[facility] - [facility] FluAD FluAD 2019-05-23 Completed [facility] 16:01:00 - [facility] FluAD FluAD 2019-05-23 Completed [facility] 16:01:00 - [facility] FluAD FluAD 2019-05-23 Completed [facility] 16[facility]01:00 - [facility] FluAD FluAD 2019-05-23 Completed [facility] 16:01:00 - [facility] FluAD FluAD 2019-05-23 Completed [facility] 16:01:00 - [facility] FluAD FluAD 2019-05-23 Completed [facility] 16:01:00 - [facility] FluAD FluAD 2019-05-23 Completed [facility] 16:01:00 - [facility] FluAD FluAD 2019-05-23 Completed [facility] 16:01:00 - [facility] FluAD FluAD 2019-05-23 Completed [facility] 00:00:00 - [facility] Vital Signs Vital Name Observation Time Observation Value Comments Source height 2021-09-06 10:00:00 62.00 [in_i] Common [facility] weight 2021-09-06 10:00:00 160 [lb_av] Common [facility] bmi 2021-09-06 10:00:00 29.26 kg/m2 [facility] height 2021-03-06 09:20:00 62.00 [in_i] [facility] weight 2021-03-06 09:20:00 160 [lb_av] Common [facility] bmi 2021-03-06 09:20:00 29.26 kg/m2 [facility] height 2021-02-06 11:20:00 62.00 [in_i] Common [facility] weight 2021-02-06 11:20:00 166 [lb_av] Common [facility] bmi 2021-02-06 11:20:00 30.36 kg/m2 Common [facility] blood pressure 2021-02-06 11:20:00 144 mm[Hg] Common [facility] systolic [facility] blood pressure 2021-02-06 11:20:00 86 mm[Hg] Common [facility] diastolic [facility] Procedures This patient has no known procedures. Encounters Start End Encounter Admission Attending Care Care Encounter Source Date/Time Date/Time Type Type Clinicians Facility Department ID 2022-08-08 Outpatient Vergara, Na STLMLC STLMLC [id number] Common 15:58:00 [facility] 2022-08-07 Outpatient Vergara, Na STLMLC STLMLC [id number] Common 09:41:00 [facility] 2021-09-18 Outpatient Vergara, Na STLMLC STLMLC [id number] Common 14:34:32 [facility] 2021-09-18 Outpatient Vergara, Na STLMLC STLMLC [id number] Common 13:25:20 [facility] 2021-09-18 Outpatient Vergara, Na STLMLC STLMLC [id number] Common 13:24:34 [facility] 2021-09-18 Outpatient Vergara, Na STLMLC STLMLC [id number] Common 11:10:11 [id number] [facility] 2021-09-18 Outpatient Vergara, Na STLMLC STLMLC [id number] Common 11:07:36 [id number] [facility] 2022-08-11 2022-08-11 OL DIG E/M STLMLC STLMLC [id number] Common 00:00:00 00:00:00 [facility] 11-20 Sp[facility] 2021-12-18 2021-12-18 (TEL) STLMLC STLMLC [id number] Co mmon 00:00:00 00:00:00 [facility] 2021-09-06 2021-09-06 OL DIG E/M STLMLC STLMLC [id number] Common 00:00:00 00:00:00 [facility] 20 Spir it [facility] 2021-08-08 2021-08-08 (TEL) STLMLC STLMLC [id number] Co mmon 00:00:00 00:00:00 [facility] 2021-06-24 2021-06-24 (TEL) STLMLC STLMLC [id number] Co mmon 00:00:00 00:00:00 [facility] 2021-03-06 2021-03-06 OL DIG E/M STLMLC STLMLC [id number] Common 00:00:00 00:00:00 [facility] 5-10 Spiri t [facility] 2021-02-07 2021-02-07 (TEL) STLMLC STLMLC [id number] Co mmon 00:00:00 00:00:00 [facility] 2021-02-06 2021-02-06 OL DIG E/M STLMLC STLMLC [id number] Common 00:00:00 00:00:00 [facility] 21+ [facility] 2021-01-23 2021-01-23 (TEL) STLMLC STLMLC [id number] Co mmon 00:00:00 00:00:00 [facility] 2020-07-11 2020-07-11 Outpatient STLMLC STLMLC [id number] Common 00:00:00 00:00:00 [facility] 2020-07-10 2020-07-10 Outpatient STLMLC STLMLC [id number] Common 00:00:00 00:00:00 [facility] 2020-06-24 2020-06-24 Outpatient STLMLC STLMLC [id number] Common 00:00:00 00:00:00 [facility] 2020-05-11 2020-05-11 [id number] Common 13:00:00 13:00:[address] [facility] 2020-02-22 2020-02-22 [facility] [id number] Common 08:40:00 08:40:[address] [facility] 2020-02-20 2020-02-20 [facility] [id number] Common 16:45:00 16:45:[address] [facility] 2020-02-20 2020-02-20 [facility] [id number] Common 15:34:00 15:34:[address] [facility] 2020-02-20 2020-02-20 [facility] [id number] Common 13:35:00 13:35:[address] [facility] 2020-02-15 2020-02-15 [facility] [id number] Common 09:26:00 09:26:[address] [facility] 2019-05-25 2019-05-25 [facility] [id number] Common 05:40:00 05:40:[address] [facility] 2019-05-23 2019-05-23 [facility] [id number] Common 13:40:00 13:40:[address] [facility] 2019-04-21 2019-04-21 [facility] [id number] Common 13:00:00 13:00:[address] [facility] 2019-04-07 2019-04-07 [facility] [id number] Common 16:20:00 16:20:[address] [facility] 2018-10-18 2018-10-18 [facility] [id number] Common 08:50:00 08:50:[address] [facility] 2018-10-07 2018-10-07 [facility] [id number] Common 14:00:00 14:00:[address] [facility] 2018-06-30 2018-06-30 [facility] [id number] Common 14:30:00 14:30:[address] [facility] 2018-04-07 2018-04-07 [facility] [id number] Common 14:00:00 14:00:[address] [facility] Results This patient has no known results.
[2022-08-22] MEDS ORDERED: NA CHLORIDE 0.9% 500 ML ONE (10:57)
[2022-08-22 10:59] LABS: Absolute Lymphocytes (CBC) 0.7 K/uL (0.7-4.9); Lymphocytes % 14.9 % (15.3-44.8); MPV 8.7 fL (7.6-11.3)
[2022-08-22 11:09] LABS: Protime INR 1.05
--- NOTE | 2022-08-22 11:16 | RAD REPORT ---
EXAM DESCRIPTION: CT - Head Brain Wo Cont - 08/22/2022 10:57 am CLINICAL HISTORY: AMS COMPARISON: Head Brain Wo Cont dated 06/24/2020 TECHNIQUE: Axial 5 mm thick images of the head were obtained without IV contrast. All CT scans are performed using dose optimization technique as appropriate and may include automated exposure control or mA/KV adjustment according to patient size. FINDINGS: No intracranial hemorrhage, mass, edema or shift of mid-line structures. No acute infarcti on changes seen. Mild to moderate chronic ischemic change seen in the cerebral white matter. Atrophy is mild to moderate for age with ventricles in proportion. Arterial tree calcifications are dense. Mastoid air cells and visualized portions of the paranasal sinuses are clear. No acute bony findings. IMPRESSION: No acute intracranial finding identifiable. Patient has mild to moderate degrees of atrophy and chronic ischemic change that are similar to the 2 020 study.
[2022-08-22 11:19] LABS: ALT/SGPT 23 U/L (13-56); AST/SGOT 16 U/L (15-37); Alkaline Phosphatase 69 U/L (45-117); BUN Blood Urea Nitrogen 8 mg/dL (7-18); Bicarbonate 29 mmol/L (21-32); Bilirubin Total 0.4 mg/dL (0.2-1.0); Glomerular Filtration Rate 94 ml/min (=/>90); Glucose Level 105 mg/dL (74-106); Potassium 3.4 mmol/L (3.5-5.1); Protein, Total 6.1 g/dL (6.4-8.2); Sodium Level 140 mmol/L (136-145); Troponin High Sensitivity 13.9 pg/mL (<58.9)
[2022-08-22 11:23] LABS: Bilirubin Direct < 0.1 mg/dL (0-0.2)
[2022-08-22 11:51] LABS: SARS-COV-2 RT PCR POSITIVE (NEGATIVE)
--- NOTE | 2022-08-22 12:19 | RAD REPORT ---
EXAM DESCRIPTION: RAD - Chest Single View - 08/22/2022 11:52 am CLINICAL HISTORY: AMS COMPARISON: Portable 06/24/2020 TECHNIQUE: AP portable chest image was obtained 08/22/2022 11:52 am . FINDINGS: No focal lung parenchymal process. Interstitial pattern is mildly prominent but not clearl y different. No hilar mass or lymphadenopathy. Heart and vasculature are normal. No measurable pleural effusion and no pneumothorax. No acute bony abnormality seen. No acute aortic findings suspected. IMPRESSION: No acute cardiopulmonary process. No significant change from comparison study.
[2022-08-22 15:20] LABS: Urine Blood Trace-intact (Negative); Urine Glucose Negative (Negative); Urine Protein Negative (Negative); Urine pH 6.5 (5.0-7.0)
[2022-08-22 15:34] LABS: Urine Bacteria None Seen /HPF (<20); Urine Mucus Slight /HPF (None Seen); Urine RBC <5 /HPF (None Seen); Urine WBC Clump Rare /HPF (None Seen)
--- NOTE | 2022-08-22 15:47 | EDPHYS ---
Physician Documentation [facility] Name: Shantal Dubois Age: 76 yrs Sex: Female : 1945 Arrival Date: 08/22/2022 Time: 09:49 Bed 6 Private MD: ED Physician Virgilio Roy HPI: 08/22 11:14 This 76 yrs old Female presents to ER via Wheelchair with complaints of Confusion. rn 11:14 The patient presents with confusion. Onset: The symptoms/episode began/occurred 1 rn year(s) ago. Possible causes: unknown. Associated signs and symptoms: Pertinent positives: confusion, headache, Pertinent negatives: abdominal pain, agitation, chest pain, seizure, shortness of breath, vertigo. Current symptoms: In the emergency department the patient's symptoms have improved. The patient has experienced similar episodes in the past. The patient has not recently seen a physician. Son reports atleast 1 year of steady decline in mental status, but worse in last couple of days. Reports headache and cough. No head injury. No chest pain/sob/abd pain/vomiting/diarrhea. . Historical: - Allergies: 10:15 No Known Allergies; iw - PMHx: 10:13 High Cholesterol; Hypertension; iw - Immunization history:: Adult Immunizations unknown, Client reports receiving the 2nd dose of the Covid vaccine. - Family history:: not pertinent. - Social history:: Smoking status: Patient denies any tobacco usage or history of. - Hospitalizations: : No recent hospitalization is reported. ROS: 11:14 Constitutional: Negative for fever, chills, and weight loss, Eyes: Negative for injury, rn pain, redness, and discharge, Neck: Negative for injury, pain, and swelling, Cardiovascular: Negative for chest pain, palpitations, and edema, Respiratory: Negative for shortness of breath, wheezing, and pleuritic chest pain, Abdomen/GI: Negative for abdominal pain, nausea, vomiting, diarrhea, and constipation, Back: Negative for injury and pain, : Negative for injury, bleeding, discharge, and swelling, MS/Extremity: Negative for injury and deformity, Skin: Negative for injury, rash, and discoloration, Neuro: Negative for weakness, numbness, tingling, and seizure. Exam: 11:14 Constitutional: This is a well developed, well nourished patient who is awake, alert, rn and in no acute distress. Head/Face: Normocephalic, atraumatic. Eyes: Periorbital areas with no swelling, redness, or edema. Cardiovascular: Regular rate and rhythm. No pulse deficits. Respiratory: Mild tachypnea Abdomen/GI: Soft, non-tender Skin: Warm, dry MS/ Extremity: Pulses equal, no cyanosis. Neuro: Awake and alert, GCS 15, oriented to person and place 13:25 ECG was reviewed by the Attending Physician. rn Vital Signs: 10:12 BP 131 / 56; Pulse 82; Resp 18; Temp 99.3; Pulse Ox 99% on R/A; iw 11:14 BP 129 / 69; Pulse 81; Resp 22; Pulse Ox 94% on R/A; db 13:30 BP 132 / 70; Pulse 66; Resp 18; Pulse Ox 97% on R/A; db 15:17 BP 137 / 70; Pulse 81; Resp 18; Pulse Ox 99% on R/A; db 16:00 BP 141 / 69; Pulse 82; Resp 18; Pulse Ox 98% on R/A; db MDM: 10:02 Patient medically screened. rn 15:43 Differential Diagnosis: electrolyte abnormality, pneumonia, UTI, volume depletion, rn COVID, viral illness. Data reviewed: vital signs, nurses notes, lab test result(s), radiologic studies, CT scan, plain films. 15:44 Counseling: I had a detailed discussion with the patient and/or guardian regarding: the rn historical points, exam findings, and any diagnostic results supporting the discharge/admit diagnosis, lab results, radiology results, the need for outpatient follow up, to return to the emergency department if symptoms worsen or persist or if there are any questions or concerns that arise at home. Response to treatment: the patient's symptoms have mildly improved after treatment, and as a result, I will discharge patient. Special discussion: Based on the history and exam findings, there is no indication for further emergent testing or inpatient evaluation. I discussed with the patient/guardian the need to see the primary care provider for further evaluation of the symptoms. ED course: Pt with COVID, no oxygen requirement and neg cxr, as well as UTI. Offered admission given AMS and likely not going to take abx as prescribed 2/2 memory lapse. Patient tearful and does not want to stay in hospital, son states will stay with her and ensure that she takes abx as prescribed. Return precautions given and understood. . 08/22 10:31 Order name: Basic Metabolic Panel; Complete Time: 12:50 rn 08/22 10:31 Order name: CBC with Diff; Complete Time: 12:50 rn 08/22 10:31 Order name: Hepatic Function; Complete Time: 12:50 rn 08/22 10:31 Order name: Protime (+inr); Complete Time: 12:50 rn 08/22 10:31 Order name: Ptt, Activated; Complete Time: 12:50 rn 08/22 10:31 Order name: Troponin High Sensitivity; Complete Time: 12:50 rn 08/22 10:31 Order name: CT Head Brain wo Cont; Complete Time: 12:50 rn 08/22 10:31 Order name: Chest Single View XRAY; Complete Time: 12:50 rn 08/22 10:31 Order name: COVID-19/FLU A+B; Complete Time: 12:50 rn 08/22 10:31 Order name: Urine Microscopic Only; Complete Time: 15:43 rn 08/22 10:31 Order name: Urine Culture rn 08/22 15:20 Order name: Urine Dipstick-Ancillary; Complete Time: 15:23 EDMS 08/22 10:31 Order name: EKG; Complete Time: 10:33 rn 08/22 10:31 Order name: Cardiac monitoring; Complete Time: 11:17 rn 08/22 10:31 Order name: EKG - Nurse/Tech; Complete Time: 11:13 rn 08/22 10:31 Order name: IV Saline Lock; Complete Time: 10:55 rn 08/22 10:31 Order name: Labs collected and sent; Complete Time: 10:56 rn 08/22 10:31 Order name: O2 Per Protocol; Complete Time: 11:17 rn 08/22 10:31 Order name: O2 Sat Monitoring; Complete Time: 11:17 rn 08/22 10:31 Order name: Urine Dipstick-Ancillary (obtain specimen); Complete Time: 15:44 rn EC:25 Rate is 79 beats/min. Rhythm is regular. QRS [place] is Normal. TN interval is normal. QRS rn interval is normal. QT interval is normal. No Q waves. T waves are Normal. No ST changes noted. Clinical impression: Normal ECG. Interpreted by me. Reviewed by me. Administered Medications: 11:03 Drug: NS 0.9% 500 ml Route: IV; Rate: bolus; Site: left antecubital; db 15:43 Follow up: Response: No adverse reaction; IV Status: Completed infusion; IV Intake: db 500ml 15:50 Drug: Rocephin (cefTRIAXone) 1 grams Route: IV; Rate: calculated rate; Site: left db antecubital; 16:07 Follow up: Response: No adverse reaction; IV Status: Completed infusion; IV Intake: 60mldb Disposition Summary: 08/22/22 15:46 Discharge Ordered Location: Home rn Problem: new rn Symptoms: have improved rn Condition: Stable rn Diagnosis - SARS-associated coronavirus as the cause of diseases classified elsewhere rn - UTI/ Urinary tract infection, site not specified rn - Dementia in other diseases classified elsewhere without behavioral disturbance rn Followup: rn - With: Private Physician - When: As needed - Reason: Recheck today's complaints, Re-evaluation by your physician Discharge Instructions: - Discharge Summary Sheet rn - Urinary Tract Infection, Adult rn - COVID-19 rn Forms: - Medication Reconciliation Form rn - Thank You Letter rn - Antibiotic pattern chain builder - Prescription Opioid Use rn Prescriptions: - cefpodoxime 100 mg Oral Tablet - take 2 tablets by ORAL route every 12 hours for 10 days take with food; 40 rn tablet; Refills: 0, Product Selection Permitted Signatures: Dispatcher [employer] Huong Olmedo, RN RN Virgilio Lobato MD MD rn Benton, Danielle, RN RN db
--- NOTE | 2022-08-22 15:47 | ER ---
Nurse's Notes [facility] Name: Shantal Dubois Age: 76 yrs Sex: Female : 1945 Arrival Date: 08/22/2022 Time: 09:49 Bed 6 Private MD: Diagnosis: SARS-associated coronavirus as the cause of diseases classified elsewhere;UTI/ Urinary tract infection, site not specified;Dementia in other diseases classified elsewhere without behavioral disturbance Presentation: 08/22 10:10 Chief complaint: Patient's son or daughter states: over the last 6-8 months she started iw having odd behaviors, over the past couple weeks it's gotten worse, last night she was not making sense she knew what she wanted to say but she couldn;t get it out, she had a fall a couple months ago and it slowed her down. 10:10 Method Of Arrival: Wheelchair iw 10:10 Acuity: JOS 3 iw 10:12 Coronavirus screen: At this time, the client does not indicate any symptoms associated iw with coronavirus-19. Ebola Screen: Patient negative for fever greater than or equal to 101.5 degrees Fahrenheit, and additional compatible Ebola Virus Disease symptoms Patient denies exposure to infectious person. Patient denies travel to an Ebola-affected area in the 21 days before illness onset. No symptoms or risks identified at this time. Initial Sepsis Screen: Does the patient meet any 2 criteria? No. Patient's initial sepsis screen is negative. Does the patient have a suspected source of infection? No. Patient's initial sepsis screen is negative. Risk Assessment: Do you want to hurt yourself or someone else? Patient reports no desire to harm self or others. Onset of symptoms was January 2022. Historical: - Allergies: 10:15 No Known Allergies; iw - PMHx: 10:13 High Cholesterol; Hypertension; iw - Immunization history:: Adult Immunizations unknown, Client reports receiving the 2nd dose of the Covid vaccine. - Family history:: not pertinent. - Social history:: Smoking status: Patient denies any tobacco usage or history of. - Hospitalizations: : No recent hospitalization is reported. Screenin:19 [facility] ED Fall Risk Assessment (Adult) History of falling in the last 3 months, db including since admission No falls in past 3 months (0 pts) Confusion or Disorientation No (0 pts) Intoxicated or Sedated No (0 pts) Impaired Gait No (0 pts) Mobility Assist Device Used Yes (1 pt) Altered Elimination No (0 pt) Score/Fall Risk Level 0 - 2 = Low Risk Oriented to surroundings, Maintained a safe environment. Abuse screen: Denies threats or abuse. Denies injuries from another. Nutritional screening: No deficits noted. Tuberculosis screening: No symptoms or risk factors identified. Assessment: 11:05 Reassessment: Patient appears in no apparent distress at this time. Patient and/or db family updated on plan of care and expected duration. Pain level reassessed. Patient is alert, oriented x 3, equal unlabored respirations, skin warm/dry/pink. per son patient has had episodes of confusion x 6 months that has progressively gotten worse over last 2 weeks. Patient is alert and oriented. And has no complaints. Denies pain. General: Appears in no apparent distress. comfortable, Behavior is calm, cooperative, quiet. Pain: Denies pain. Neuro: No deficits noted. Level of Consciousness is awake, alert, obeys commands, Oriented to person, place, time, situation, Speech is normal. Cardiovascular: No deficits noted. Capillary refill < 3 seconds Rhythm is sinus rhythm. Respiratory: No deficits noted. Airway is patent Respiratory effort is even, unlabored, Respiratory pattern is regular, symmetrical. GI: No deficits noted. No signs and/or symptoms were reported involving the gastrointestinal system. Abdomen is flat, non-distended, Abd is soft and non tender. : No deficits noted. No signs and/or symptoms were reported regarding the genitourinary system. EENT: No deficits noted. No signs and/or symptoms were reported regarding the EENT system. Derm: No deficits noted. Skin is pink, warm \T\ dry. Musculoskeletal: No deficits noted. No signs and/or symptoms reported regarding the musculoskeletal system. 15:03 Reassessment: PATIENT ASSISTED TO RESTROOM. Neuro: Level of Consciousness is awake, db alert, obeys commands, confused. 15:03 Reassessment: Patient appears in no apparent distress at this time. No changes from db previously documented assessment. Patient and/or family updated on plan of care and expected duration. Pain level reassessed. Patient is alert, oriented x 3, equal unlabored respirations, skin warm/dry/pink. 16:00 Reassessment: Patient appears in no apparent distress at this time. No changes from db previously documented assessment. Patient and/or family updated on plan of care and expected duration. Pain level reassessed. Patient is alert, oriented x 3, equal unlabored respirations, skin warm/dry/pink. Vital Signs: 10:12 BP 131 / 56; Pulse 82; Resp 18; Temp 99.3; Pulse Ox 99% on R/A; iw 11:14 BP 129 / 69; Pulse 81; Resp 22; Pulse Ox 94% on R/A; db 13:30 BP 132 / 70; Pulse 66; Resp 18; Pulse Ox 97% on R/A; db 15:17 BP 137 / 70; Pulse 81; Resp 18; Pulse Ox 99% on R/A; db 16:00 BP 141 / 69; Pulse 82; Resp 18; Pulse Ox 98% on R/A; db ED Course: 09:49 Patient arrived in ED. rg4 10:02 Virgilio Roy MD is Attending Physician. rn 10:12 Triage completed. iw 10:13 Arm band placed on. iw 10:46 Brittanie Pierre, RN is Primary Nurse. db 10:55 COVID-19/FLU A+B Sent. bc6 10:56 Basic Metabolic Panel Sent. bc6 10:56 CBC with Diff Sent. bc6 10:56 Hepatic Function Sent. bc6 10:56 Protime (+inr) Sent. bc6 10:56 Ptt, Activated Sent. bc6 10:56 Troponin High Sensitivity Sent. bc6 10:56 Inserted saline lock: 20 gauge in left antecubital area, using aseptic technique. bc6 10:56 Initial lab(s) drawn, by me, sent to lab. COVID swab sent to lab. bc6 10:57 CT Head Brain wo Cont In Process Unspecified. EDMS 11:13 EKG done, by ED staff. bc6 11:19 Patient has correct armband on for positive identification. Placed in gown. Bed in low db position. Call light in reach. Side rails up X2. Client placed on continuous cardiac and pulse oximetry monitoring. NIBP monitoring applied. Warm blanket given. 11:54 Chest Single View XRAY In Process Unspecified. EDMS 16:22 No provider procedures requiring assistance completed. IV discontinued, intact, db bleeding controlled, No redness/swelling at site. Administered Medications: 11:03 Drug: NS 0.9% 500 ml Route: IV; Rate: bolus; Site: left antecubital; db 15:43 Follow up: Response: No adverse reaction; IV Status: Completed infusion; IV Intake: db 500ml 15:50 Drug: Rocephin (cefTRIAXone) 1 grams Route: IV; Rate: calculated rate; Site: left db antecubital; 16:07 Follow up: Response: No adverse reaction; IV Status: Completed infusion; IV Intake: 60mldb Medication: 16:22 VIS not applicable for this client. db Intake: 15:43 IV: 500ml; Total: 500ml. db 16:07 IV: 60ml; Total: 560ml. db Outcome: 15:46 Discharge ordered by MD. rn 16:22 Discharged to home via wheelchair, with family. db 16:22 Condition: stable 16:22 Discharge instructions given to patient, Instructed on discharge instructions, follow up and referral plans. Prescriptions given X 1. 16:33 Patient left the ED. db Signatures: Dispatcher [employer] EDHuong Tobar RN RN iw Virgilio Roy MD MD rn Garcia, Rubi rg4 Brittanie Pierre RN RN db [place], Breana bc6 Corrections: (The following items were deleted from the chart) 10:13 10:10 Chief complaint: Patient's son or daughter states: over the last 6-8 months she iw started having odd behaviors, over the past couple weeks it's gotten worse, last night she was not making sense she knew what she wanted to say but she couldn;t get it out iw 10:15 10:12 BP 131 / 56; Pulse 47bpm; Resp 18bpm; Pulse Ox 99% RA; Temp 99.3F; iw iw
[2022-08-22] MEDS ORDERED: NA CHLORIDE 0.9% 50 ML IV ONE ×2 (15:52→16:02)
[2022-08-22] MEDS ORDERED: CEFTRIAXONE 1000 MG/VIAL ONE ×2 (15:52→16:02)
[2022-08-22 16:41] VITALS: TEMP 99.3
[2022-08-22 16:46] VITALS: BP 141/69; O2SAT 98
--- NOTE | 2022-08-24 19:09 | EKG ---
Test Date: 2022-08-22 Test Time: 11:09:29 Fixer Supervisor: SHELLY MEASUREMENT RESULTS: Intervals: Rate: 79 TX: 136 QRSD: 74 QT: 408 QTc: 467 [place]: P: 58 TX: 136 QRS: 20 T: 30 INTERPRETIVE STATEMENTS: Sinus rhythm with premature atrial complexes Otherwise normal ECG Compared to ECG 06/24/2020 22:17:38 Atrial premature complex(es) now present Fusion complex(es) no longer present Ventricular premature complex(es) no longer present ST (T wave) deviation no longer present Electronically Signed On 08-24-22 19:08:01 [employer] DEVELOPER by Ortiz Tatum
== END 2022-08-22 16:33 | disposition home or self-care (01) ==
LOC: ER 09:46
DX: U07.1 COVID-19 (principal); N39.0 Urinary tract infection, site not specified; F03.90 Unspecified dementia, unspecified severity, without behavioral disturbance, psychotic disturbance, mood disturbance, and anxiety; I10 Essential (primary) hypertension
CPT/HCPCS: 96365; 96361; 93005; 87088; 85025; 87086; 80048; 36415; 85610; 80076; 85730; 84484; 0240U; 70450; 71045; 99284; J7040; 81003; 81015